=== PATIENT | male | born 1985 | race Caucasian/White ===

== ENCOUNTER 2025-09-03 15:02 | Emergency (ER) | payer BC, OTHER ==
[2025-09-03 16:32] LABS: BASOPHILS ABSOLUTE AUTO 0.1 K/mm3 (0.0-0.2); BASOPHILS PERCENT AUTO 0.8 % (0.0-1.0); EOSINOPHILS ABSOLUTE AUTO 0.1 K/mm3 (0.0-0.4); EOSINOPHILS PERCENT AUTO 0.6 % (0.0-6.0); IMMATURE GRAN ABSOLUTE AUTO 0.03 K/mm3 (0.00-0.05); IMMATURE GRAN PERCENT AUTO 0.2 % (0.0-0.4); LYMPHOCYTES ABSOLUTE AUTO 3.2 K/mm3 (1.0-4.8); LYMPHOCYTES PERCENT AUTO 26.2 % (24.0-44.0); MEAN PLATELET VOLUME 9.3 fl (9.4-12.4); MONOCYTES ABSOLUTE AUTO 1.0 K/mm3 (0.0-0.8); MONOCYTES PERCENT AUTO 7.8 % (0.0-8.0); NEUTROPHILS ABSOLUTE AUTO 7.9 K/mm3 (1.8-7.7); NEUTROPHILS PERCENT AUTO 64.4 % (41.0-71.0); NRBC ABSOLUTE 0.00 (0.00-0.02); NRBC PERCENT 0.0 % (0.0-0.2); PLATELET COUNT,PLT 327 K/mm3 (150-400); RED BLOOD CELL COUNT 4.95 M/mm3 (4.52-5.90); WHITE BLOOD CELL COUNT,WBC 12.28 K/mm3 (3.9-11.3)
[2025-09-03] MEDS: Sodium Chloride 0.9% 10 ML Syringe FLUSH ONE (16:35)
[2025-09-03] MEDS: Iopamidol 755 Mg/ML 100 ML Bottle IVPUSH ONE (16:35)
[2025-09-03 16:50] LABS: A/G RATIO 0.9 (1-2); ALANINE AMINOTRANSFERASE,ALT 47 U/L (16-63); ASPARTATE AMNIOTRANSFERASE,AST 23 U/L (15-37); BILIRUBIN TOTAL 0.4 mg/dL (0.2-1.0); BLOOD UREA NITROGEN,BUN 14 mg/dL (7-18); CARBON DIOXIDE,CO2 23 mEq/L (21-32); CHLORIDE,CL 101 mEq/L (98-107); CREATININE 1.2 mg/dL (0.7-1.3); ESTIMATED GFR 79 mL/min (>60); GLUCOSE RANDOM 108 mg/dL (70-99); PROTEIN TOTAL,TP 8.1 g/dl (6.4-8.2); SODIUM,NA 140 mEq/L (136-145)
[2025-09-03 16:54] LABS: POTASSIUM,K 2.5 mEq/L (3.5-5.1); TROPONIN I HIGH SENSITIVITY < 4 pg/mL (<=76)
[2025-09-03] MEDS: Potassium Chloride 20 MEQ Tab.ER PO ONE (17:18)
== END 2025-09-03 19:50 | disposition home or self-care (01) ==
LOC: JD.ED 15:02
DX: R07.9 Chest pain, unspecified (principal); E87.6 Hypokalemia; I10 Essential (primary) hypertension; F17.200 Nicotine dependence, unspecified, uncomplicated; Z79.899 Other long term (current) drug therapy
CPT/HCPCS: 36415; 71275; 80053; 83880; 84484; 85025; 93005; 96365; 96366; 99285; A9270; J3480; J7030; Q9967; 93010; 99283